=== PATIENT | male | born 1940 | race Caucasian/White ===

== ENCOUNTER 2016-10-06 09:44 | Emergency (ER) ==
[2016-10-06 09:51] VITALS: BP 131/81; TEMP 98.8; BMI 25.1
[2016-10-06] MEDS ORDERED: SILVER NITRATE APPLICATOR TP STA ×2 (10:03)
--- NOTE | 2016-10-06 10:05 | ED.PDOC ---
General ED Provider: Dr. LAUREN TESFAYE JR Chief Complaint: Nosebleed Stated Complaint: patient states he has had a nosebleed since midnight. states it is primarily from the left nare but occassionally from the right. had a nosebleed 2-3 weeks ago and went to [facility], [place], operated by [facility] and had it packed. states since the packing came out he as had bleeding off and on. states he saw and ent pa about this but when he called this morning they told him to come to er[End]98.8 81 16 131/81 Time Seen by Physician: 10:03 Mode of Arrival: Walk-In Information Source: Patient Exam Limitations: No limitations Primary Care Provider: PAUL THOMPSON Nursing and Triage Documentation Reviewed and Agree: No Review of Systems - Review Of Systems Constitutional: Reports: No symptoms Eyes: Reports: No symptoms Ears, Nose, Mouth, Throat: Reports: Epistaxis Respiratory: Reports: No symptoms Cardiac: Reports: No symptoms GI: Reports: No symptoms : Reports: No symptoms Musculoskeletal: Reports: No symptoms Skin: Reports: No symptoms Neurological: Reports: No symptoms Endocrine: Reports: No symptoms Hematologic/Lymphatic: Reports: Easy bleeding All Other Systems: Other Past Medical History - Past Medical History Previously Healthy: Yes Endocrine: Reports: None Cardiovascular: Reports: Hypertension, Other (AAA ) Respiratory: Reports: Other (nosebleeds sinus surgery ) Hematological: Reports: None Gastrointestinal: Denies: Pancreatitis (pancreatic cyst) Genitourinary: Reports: Other (renal cyst) Neuro/Psych: Reports: None Musculoskeletal: Reports: None Cancer: Reports: None Other Pertinent Past Medical History: note mild anemia 09/24 - Surgical History General Surgical History: Reports: Orthopedic (left knee 8 years ago), Other ( sinus surgery) - Family History Family History: Reports: Unknown - Social History Smoking Status: Never smoker Hx Substance Use: No Alcohol Screening: None Physical Exam - Physical Exam Appearance: Well-appearing Ill-appearing: Mild Pain Distress: Mild Eyes: PRABHU, EOMI, Conjunctiva clear ENT: Ears normal, Oropharynx normal (no drainage), Epistaxis, Erythema Neck: Supple Respiratory: Airway patent, Breath sounds clear, Breath sounds equal, Respirations nonlabored Cardiovascular: RRR, Pulses normal, No rub, No murmur GI/: Soft, Nontender, No masses, Bowel sounds normal, No Organomegaly Musculoskeletal: Normal strength, ROM intact, No edema, No calf tenderness Skin: Warm, Dry, Normal color Neurological: Sensation intact, Motor intact, Reflexes intact, Cranial nerves intact, Alert, Oriented Psychiatric: Affect appropriate, Mood appropriate Procedures - Nasal Packing/Cautery Indications: Present: Anterior epistaxis Packing/Cautery Procedure: Right (after left packing right packing placed still with oozing), Left, Bilateral, Anterior, Silver nitrate Suction Used: No Pressure Used to Control Bleeding: Yes Hemostasis Obtained: Yes (initial hemostasis with silver nitrate but rebleed left packing placed blee) Critical Care Note - Critical Care Note Total Time (mins): 0 Course - Course Vital Signs: Temp Pulse Resp BP Pulse Ox 10/06/16 09:46 98.8 F 81 16 131/81 94 L Departure - Departure Time of Disposition: 12:35 Disposition: HOME SELF-CARE Discharge Problem: Epistaxis Instructions: Nosebleed (ED) Condition: Good Pt referred to PMD for follow-up: Yes Additional Instructions: nasal packing may be removed in one day may follow up with Dr Luz at 1:[address] [place] [address]([address]) [phone] [place] [address] change bandage if soaks through september hod firm pressure if any oozing return if worse Allergies/Adverse Reactions: Allergies No Known Drug Allergies Allergy (Unverified 10/06/16 09:50) Home Medications: Ambulatory Orders Amlodipine Besylate [Norvasc] 10 mg PO DAILY 04/21/14 Aspirin [Aspirin EC] 81 mg PO DAILY 04/21/14 Calcium Carbonate/Vitamin D3 [Calcium 600 + Vit D Tablet] 600 mg PO 3 TIMES PER WEEK 04/21/14 Carvedilol [Coreg] 25 mg PO BID 04/21/14 Gluc Carballo/Chondro Carballo A/Vit C/Mn [Glucosamine 1,500 Complex Cp] 1,500 mg PO BID Losartan Potassium [Cozaar] 75 mg PO BID 04/21/14 Montelukast Sodium [Singulair] 10 mg PO DAILY 04/21/14 [place]-3 Fatty Acids/Fish Oil [Fish Oil 1,000 mg Capsule] 1,000 mg PO DAILY 04/21 Rosuvastatin Calcium [Crestor] 20 mg PO 3 TIMES PER WEEK 04/21/14 Docusate Sodium [Colace] 100 mg PO BEDTIME 01/02/15 Docusate Sodium [Colace] 100 mg PO DAILY 01/02/15 Mucinex 600 mg PO DAILY 01/02/15 Ascorbate Calcium [Vitamin C] 500 mg PO DAILY 10/06/16 Green Tea [place] Extract [Green Tea] 1 each PO BID 10/06/16 Multivitamin [Daily Multiple Vitamin] 1 each PO DAILY 10/06/16 Saw Eagle Xtr/Zinc Picolin [Saw [place] Capsule] 1 each PO BID 10/06/16
== END 2016-10-06 13:04 | disposition home or self-care (01) ==
LOC: ED 09:44
DX: R04.0 Epistaxis (principal); I10 Essential (primary) hypertension; Z79.899 Other long term (current) drug therapy
CPT/HCPCS: 99282

== ENCOUNTER 2018-10-23 06:56 | Day surgery (SDC) ==
[2018-10-23 07:25] VITALS: TEMP 97.9
[2018-10-23] MEDS ORDERED: DIPRIVAN 20 ML VIAL IVP ONE (08:10)
[2018-10-23] MEDS ORDERED: VERSED ONE (08:10)
[2018-10-23] MEDS ORDERED: LIDOCAINE 1% 20 ML MDV ID STA (08:47)
--- NOTE | 2018-10-24 08:08 | OP ---
INDICATIONS FOR PROCEDURE: 78 year old gentleman with a past history of adenomatous polyps from colonoscopy 5 years ago presents for a surveillance exam. MEDICATIONS: SEE ANESTHESIA NOTES. PROCEDURE: COLONOSCOPY, SNARE POLYPECTOMY REPORT: The risks, benefits, alternatives and limitations were discussed in detail with the patient. Informed consent was obtained. After adequate sedation was achieved, a digital rectal exam revealed good tone, no masses. The colonoscope was introduced into the rectum and advanced under direct visual guidance to the cecum. The cecum was identified by the appendiceal orifice and IC valve. I then slowly withdrew the scope in circumferential manner and examined the mucosa quite carefully. I looked on the proximal and distal sides of folds and flexures as best as possible. I was able to retroflex the scope in the right colon as well as the left colon. In the ascending colon there were two small 5mm sessile polyps. I removed these by snare technique. In the mid-distal transverse there was small 4mm sessile polyp that I removed and destroyed this using snare technique. There was scattered diverticulosis in the right and left colon. On retroflex view of the anal canal there was small internal hemorrhoids. The prep was good. Withdraw time 13 minutes and 46 seconds. The patient tolerated the procedure well with stable vital signs and pulse oximetry throughout. IMPRESSION: 1. Three polyps removed or destroyed as above. 2. Pandiverticulosis 3. Small internal hemorrhoids RECOMMENDATIONS: 1. High fiber diet 2. Office visit as needed 3. Await polyp pathology and if everything is benign as expected I suggest a surveillance colonoscopy examination again in three years or sooner if there are signs of symptoms to indicate otherwise. CC: Canelo BOONE
[2018-10-24 10:26] VITALS: BP 126/75
== END 2018-10-23 09:30 | disposition home or self-care (01) ==
LOC: SURG 06:56
PROVIDERS: ATTEND Internal Medicine Gastroenterology
DX: K62.5 Hemorrhage of anus and rectum (principal); Z86.010 Personal history of colon polyps; K57.90 Diverticulosis of intestine, part unspecified, without perforation or abscess without bleeding; K64.8 Other hemorrhoids; D12.2 Benign neoplasm of ascending colon